=== PATIENT | male | born 2000 | race Two or more races ===

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

== ENCOUNTER 2025-01-15 14:45 | Emergency (ER) | payer SELFPAY ==
[~2025-01-15] VITALS: Ht 170.2 cm; Wt 83.9 kg
[2025-01-15 14:57] VITALS: BP 125/67; TEMP 98.3
[2025-01-15 17:24] VITALS: O2SAT 99
== END 2025-01-15 16:50 | disposition home or self-care (01) ==
LOC: ER 14:59
DX: S63.501A Unspecified sprain of right wrist, initial encounter (principal); S60.221A Contusion of right hand, initial encounter; S60.222A Contusion of left hand, initial encounter; Z88.6 Allergy status to analgesic agent; W22.01XA Walked into wall, initial encounter; Y93.89 Activity, other specified; Y92.89 Other specified places as the place of occurrence of the external cause; Y99.9 Unspecified external cause status
CPT/HCPCS: 73110; 73130-TC